=== PATIENT | female | born 1975 | race Caucasian/White ===

== ENCOUNTER 2016-12-03 20:31 | Emergency (ER) | payer MEDICAID ==
[~2016-12-03 20:31] MED LIST: ACYCLOVIR800 MG PO; AMBIEN10 MG PO; BENADRYL50 MG PO; BUSPIRONE HCL5 M1 PO; CALCIUM 600 WI1 EACH PO; CARAFATE1 G2 PO; CLARITIN10 M8 PO; CLONAZEPAM0.25 MG PO; CYMBALTA30 MG; DIAZEPAM5 M PO; HYDROCODONE/APA1 CAP PO; HYDROXYZINE PAM25 M2 PO; LAMICTAL; LAMICTAL25 MG PO; LO LOESTRIN FE1 EAC1 PO; LORTAB 5-325 M1 EAC1 PO; LORTAB 5/500 TA1 TAB PO; MACROBID 100 M100 MG PO; MIRALAX17 G2 PO; NEURONTIN; NEURONTIN300 MG PO; NORVASC5 M2 PO; OMEPRAZOLE20 M4 PO; PATANASE30.5 G1; PAZEO2.5 ML EACH EYE; PEPCID AC20 MG PO; PERCOCET 5-3251 EACH PO; PERCOCET 5/3251 TAB PO; PREDNISONE10 MG PO; RULOX SUSPENSI355 M2; SINGULAIR10 M1 PO; VALACYCLOVIR1000 M1 PO; VALIUM; VALIUM5 M1 PO; VIMPAT50 MG/TAB PO; XANAX1 MG; ZOFRAN ODT4 MG PO; [UNRECOGNIZED DRUG - OTHER]; [UNRECOGNIZED DRUG - OTHER] PO
[2016-12-03] MEDS ORDERED: PEPCID20 M1 PO (21:23)
[2016-12-03] MEDS ORDERED: CLARITIN10 M6 PO (21:29)
[2016-12-03] MEDS ORDERED: LEVSIN-SL0.125 MG SL (21:30)
[2016-12-03] MEDS ORDERED: ASPIRIN81 M1 PO (21:30)
[2016-12-03] MEDS ORDERED: BENTYL10 M1 (21:30)
[2016-12-03] MEDS ORDERED: ZOFRAN4 M2 (21:31)
[2016-12-03] MEDS ORDERED: DOXEPIN HCL10 M1 PO (21:31)
[2016-12-03] MEDS ORDERED: ULTRAM50 M1 (21:31)
[2016-12-03] MEDS ORDERED: IBUPROFEN200 M2 PO (21:32)
[2016-12-03] MEDS ORDERED: VIMPAT50 MG/TAB PO (21:32)
[2016-12-03] MEDS ORDERED: PROAIR HFA8.5 GM (21:33)
[2016-12-03 22:31] LABS: URINE BILIRUBIN NEGATIVE (NEG); URINE BLOOD SMALL (NEG); URINE GLUCOSE (UA) NEGATIVE (NEG); URINE KETONE NEGATIVE (NEG); URINE LEUKOCYTE ESTERASE POSITIVE (NEG); URINE NITRITE NEGATIVE (NEG); URINE PROTEIN NEGATIVE (NEG)
[2016-12-03 22:32] LABS: URINE APPEARANCE CLEAR; URINE COLOR YELLOW
[2016-12-03 22:40] LABS: URINE BACTERIA 1+
[2016-12-03] MEDS ORDERED: CYCLOBENZAPRINE10 M1 PO (23:32)
[2016-12-03] MEDS ORDERED: NORCO 5/3251 TAB PO (23:32)
== END 2016-12-03 23:55 ==
LOC: EDMED 20:31
PROVIDERS: Emergency Medicine
DX: M54.31 Sciatica, right side (principal); E11.9 Type 2 diabetes mellitus without complications; I10 Essential (primary) hypertension; F31.9 Bipolar disorder, unspecified; K21.9 Gastro-esophageal reflux disease without esophagitis; Z87.442 Personal history of urinary calculi; Z90.710 Acquired absence of both cervix and uterus; Z98.890 Other specified postprocedural states; Z79.899 Other long term (current) drug therapy
CPT/HCPCS: J1885; J2270; J2405; J3360; J7030